=== PATIENT | female | born 1945 | race Caucasian/White ===

== ENCOUNTER → 2019-02-05 | Outpatient (CLI) | payer MEDICARE | LOC: GMAHI 16:48 | PROVIDERS: ATTEND Nurse Practitioner Family | DX: R10.84 Generalized abdominal pain (principal); Z79.899 Other long term (current) drug therapy ==

== ENCOUNTER → 2019-02-10 | Outpatient (CLI) | payer MEDICARE | LOC: GMAJS 16:40 | PROVIDERS: ATTEND Physician Assistant | DX: R10.84 Generalized abdominal pain (principal); R50.9 Fever, unspecified ==

== ENCOUNTER → 2019-02-12 | Outpatient (CLI) | payer MEDICARE ==
--- NOTE | 2019-02-12 17:28 | US ---
EXAM DESCRIPTION: Abdomen,Complete: Ultrasound. CLINICAL HISTORY: GENERALIZED ABDOMINAL PAIN COMPARISON: None Available. TECHNIQUE: Transabdominal scannin-dimensional and Doppler modes. FINDINGS: Gallbladder: Appears slightly contracted. Wall thickness 2.9 mm with no fluid. No intraluminal stones or sludge. Nontender with transducer pressure. Common bile duct: 6.7 mm which is borderline dilated. Liver: Long axis right lobe 12.2 cm. Diffuse increased echogenicity with normal caliber of the ducts and portal vein; normal hepatopedal flow. Smooth capsule with no ascites.. Pancreas: Normal echogenicity of the included segments with common bile duct. Abdominal aorta: Normal caliber from the proximal segment to the distal bifurcation, with atherosclerotic changes of the intima. IVC: visualized; normal caliber. Spleen normal echogenicity; long axis measurement is 10.8 cm. Right kidney: 9.8 cm Long axis with cortical thinning 11 mm. Normal cortical echogenicity. No echogenic stones, hydronephrosis, or perirenal fluid. left kidney: 8.7 cm long axis with cortical thinning but normal echogenicity. No echogenic stones, hydronephrosis, or perirenal fluid. IMPRESSION: 1. Fatty liver but not enlarged. Normal vascularity and ducts. No ascites. 2. Gallbladder mildly contracted but no stones or sludge. Nontender. Common bile duct is borderline dilated. Consider radionuclide hepatobiliary imaging. 3. Bilateral kidneys with age-related changes more likely, normal echogenicity. Spleen pancreas unremarkable. Aorta with atherosclerotic changes but normal caliber. Electronically signed by: Umang Payton MD 02/12/2019 5:25 PM CDT
== END ==
LOC: US 14:30
PROVIDERS: ATTEND Physician Assistant
DX: K76.0 Fatty (change of) liver, not elsewhere classified (principal); K82.9 Disease of gallbladder, unspecified

== ENCOUNTER → 2019-02-28 | Outpatient (CLI) | payer MEDICARE ==
--- NOTE | 2019-02-28 11:57 | NM ---
EXAM DESCRIPTION: Hepatobiliary w/CCK: Nuclear Medicine. CLINICAL HISTORY: ABDOMINAL TENDERNESS COMPARISON: Complete abdominal ultrasound 02/12/2019. TECHNIQUE: Patient was given 8.2 mCi of technetium 99 M mebrofenin (Choletec) radiopharmaceutical IV. Anterior gamma camera images were obtained of the right upper quadrant at 5 minute intervals for one hour . The patient was then given 1.8 mcg CCK IV infusion over 30 minutes interval. Gallbladder ejection fraction was evaluated by measuring diminishing radioactivity in the gallbladder, over 30 min interval. FINDINGS: Immediate visualization of the entire liver after IV infusion of radiopharmaceutical began. No focal regions of increased or decreased activity. Timely visualization of intrahepatic and extrahepatic biliary tract, gallbladder, and small bowel. The common bile duct appears to be dilated. After CCK IV infusion began, the right upper quadrant pain and nausea was duplicated. During CCK IV infusion, the activity in the gallbladder decreased 9% in the first 10 minutes and 99% in the first 20 minutes. IMPRESSION: 1. No intrahepatic or extrahepatic biliary obstruction with timely visualization of the gallbladder and small bowel after IV radiopharmaceutical administration. Dilated bile duct correlates with ultrasound findings. Consider CT scan of the abdomen with thin section scanning of the gómez hepatis and pancreas, ERCP or MRCP. 2. Administration of CCK IV reproduced symptoms, but normal 30 minute ejection fraction of 96%. Electronically signed by: Umang Payton MD 02/28/2019 11:55 AM CDT
== END ==
LOC: NM 08:00
PROVIDERS: ATTEND Family Medicine
DX: K83.8 Other specified diseases of biliary tract (principal)
CPT/HCPCS: 78227; A9537

== ENCOUNTER → 2019-03-03 | Outpatient (CLI) | payer MEDICARE ==
--- NOTE | 2019-03-07 09:24 | MAM ---
EXAM DESCRIPTION: 3D Screening BILATERAL : Digital Mammography. CLINICAL HISTORY: 73 years Female ANNUAL SCREENING no personal history of breast cancer. Remote family history of breast cancer. Childbirth. Premenopausal 20+ years no HRT. Lifetime risk of developing breast cancer (Tyrer-Cuzick model)(%): 3.5. COMPARISON: Baseline study at this facility.. TECHNIQUE: Bilateral CC and MLO projection full-field images, digital tomosynthesis mammographic technique. Bilateral digital 2-D full-field MLO images. CAD not available for tomosynthesis or 2-D images. FINDINGS: The breast parenchymal density pattern is: Scattered areas of fibroglandular density. No skin thickening or nipple retraction. Bilateral solitary microcalcifications. Bilateral vascular calcifications. No focal, stellate mass or density, focal asymmetry , and no suspicious microcalcifications bilaterally. IMPRESSION: Benign exam. BIRAD CATEGORY: 2 BENIGN FINDINGS. RECOMMENDATIONS: FOLLOW UP: Routine digital bilateral mammographic screening, one year interval from February 2019. Written communication explaining the IMPRESSION and follow-up, will be mailed to the patient and referring health care provider. The FINDINGS and the FOLLOW-UP plan were reviewed in person with the patient after the examination. According to the [employer], yearly mammograms are recommended starting at age 40 and continuing as long as a woman is in good health. Any breast change noted on a breast self-exam should be reported promptly to the patient's healthcare provider. Breast MRI is recommended for women with an approximately 20-25% or greater lifetime risk of breast cancer, including women with a strong family history of breast or ovarian cancer and women who have been treated for Hodgkin's disease. A negative mammographic report should not delay tissue diagnosis in patients with significant clinical history or physical findings. Extremely dense breast tissue limits the sensitivity of digital mammography. Electronically signed by: Umang Payton MD 03/07/2019 9:22 AM CDT
== END ==
LOC: GMAM 21:11
PROVIDERS: ATTEND Family Medicine
DX: Z12.31 Encounter for screening mammogram for malignant neoplasm of breast (principal); R10.811 Right upper quadrant abdominal tenderness

== ENCOUNTER → 2019-03-05 | Outpatient (CLI) | payer MEDICARE ==
--- NOTE | 2019-03-05 16:35 | CT ---
PROVIDED CLINICAL HISTORY/REASON FOR EXAM: RUQ PAIN STUDY TYPE/TECHNIQUE: CT ABDOMEN PELVIS WITH IV CONTRAST This exam was performed according to our departmental dose-optimization program, which includes automated exposure control, adjustment of the mA and/or kV according to patient size and/or use of iterative reconstruction technique. COMPARISON: None at time of initial interpretation. FINDINGS: Bibasilar volume loss. No focal consolidation or suspicious pulmonary nodule. Slightly nodular liver contour. Mild steatosis. No suspicious lesion. The gallbladder is not distended. The portal vein is patent. The spleen, pancreas and adrenal glands are unremarkable. Right renal cyst. Normal renal contours. Symmetric renal parenchymal enhancement. No hydronephrosis. No urolithiasis. The bladder is mildly distended. No adnexal mass. Scattered colonic diverticula without focal inflammatory change. No evidence of bowel obstruction. No findings to suggest appendicitis. No adenopathy. No focal fluid collection. No free air. Normal caliber abdominal aorta. Moderate diffuse atherosclerotic disease. No acute or suspicious osseous abnormality. Scattered degenerative changes present. IMPRESSION: 1. No evidence of acute process in the abdomen or pelvis. 2. Findings of chronic liver disease. Electronically signed by: Zach John MD 03/05/2019 4:34 PM CDT
== END ==
LOC: CT 14:30
PROVIDERS: ATTEND Family Medicine
DX: K76.9 Liver disease, unspecified (principal)

== ENCOUNTER → 2019-03-21 | Day surgery (SDC) | payer MEDICARE ==
[~2019-03-21] MED LIST: LACTATED RINGERS 1,000 ML ONE; LIDOCAINE 1% 10 ML VIAL INJ ONE; PROPOFOL 200 MG/20 ML VIAL IV ONE
--- NOTE | 2019-03-21 09:23 | OP ---
DATE OF PROCEDURE: 03/21/19 PROCEDURE: 1. Colonoscopy. SURGEON: Daniel Langston MD ANESTHESIA: General. PROCEDURE: After complete informed consent, general anesthesia was induced. In the lateral position, digital rectal exam revealed no evidence of masses. The colonoscope was carefully inserted and then advanced. Diverticulosis was noted, but it was advanced all the way to the cecum without difficulty. The appendiceal orifice was identified. We did not get into the terminal ileum. Upon careful withdrawal and inspection, no significant polyps were identified throughout the entire colon. There was diverticulosis. There was no evidence of complications. Overall, a normal scope. We will review her history and make further recommendations, but she declared this would be her last colonoscopy at age 73. She was awakened and taken to Recovery to be discharged. [facility][id number]
[2019-03-21 14:05] VITALS: BP 151/69; TEMP 97.3; O2SAT 99
== END ==
LOC: AMB 05:31
PROVIDERS: ATTEND Surgery
DX: Z12.11 Encounter for screening for malignant neoplasm of colon (principal); K57.30 Diverticulosis of large intestine without perforation or abscess without bleeding; F41.9 Anxiety disorder, unspecified; F32.9 Major depressive disorder, single episode, unspecified; Z88.5 Allergy status to narcotic agent; Z88.8 Allergy status to other drugs, medicaments and biological substances; Z87.891 Personal history of nicotine dependence; Z79.899 Other long term (current) drug therapy
CPT/HCPCS: 00812; G0121; J3490; J7120

== ENCOUNTER → 2019-04-02 | Outpatient (CLI) | payer MEDICARE ==
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
== END ==
LOC: CT 15:00
PROVIDERS: ATTEND Family Medicine
DX: R07.9 Chest pain, unspecified (principal)

== ENCOUNTER 2019-04-07 05:32 | Day surgery (SDC) | payer MEDICARE ==
[2019-04-07] MEDS ORDERED: LACTATED RINGERS 1,000 ML ONE (08:26)
[2019-04-07] MEDS ORDERED: SODIUM CHLORIDE 0.9% 50 ML VIAL INJ ONE (10:00)
[2019-04-07] MEDS ORDERED: LIDOCAINE 1% 10 ML VIAL INJ ONE (10:00)
[2019-04-07] MEDS ORDERED: KETOROLAC TROMETHAMINE INJ 30 MG/ML VIAL IV ONE (10:00)
[2019-04-07] MEDS ORDERED: ONDANSETRON INJ 4 MG/2 ML VIAL IV ONE (10:00)
[2019-04-07] MEDS ORDERED: DEXAMETHASONE INJ 10 MG/ML VIAL IV ONE (10:00)
[2019-04-07] MEDS ORDERED: METOCLOPRAMIDE HCL INJ 10 MG/2 ML VIAL IV ONE (10:00)
[2019-04-07] MEDS ORDERED: PROPOFOL 200 MG/20 ML VIAL IV ONE (10:00)
[2019-04-07] MEDS ORDERED: ePHEDrine SULF 50 MG/ML IV ONE (10:00)
[2019-04-07] MEDS ORDERED: raNITIdine HCL INJ 25 MG/ML VIAL IV ONE (10:00)
[2019-04-07] MEDS ORDERED: fentaNYL CITRATE INJ 50 MCG/ML AMP ONE ×2 (11:22→12:14)
[2019-04-07] MEDS ORDERED: ROCURONIUM BROMIDE 10 MG/ML VIAL ONE (11:23)
[2019-04-07] MEDS ORDERED: BUPIVACAINE 0.5% W/EPI 30 ML VIAL INJ ONE (11:29)
[2019-04-07] MEDS ORDERED: SODIUM CHLORIDE 0.9% 1,000 ML BAG IVS ONE (12:07)
[2019-04-07] MEDS ORDERED: SUGAMMADEX SODIUM 200 MG/2 ML VIAL IV ONE (12:26)
[2019-04-07] MEDS ORDERED: ONDANSETRON INJ 4 MG/2 ML VIAL ONE (13:02)
[2019-04-07] MEDS ORDERED: HYDROmorphone HCL INJ 2 MG/ML VIAL ONE (13:13)
--- NOTE | 2019-04-07 13:19 | OP ---
DATE OF PROCEDURE: 04/07/19 PREOPERATIVE DIAGNOSIS: 1. Biliary dyskinesia. POSTOPERATIVE DIAGNOSIS: 1. Biliary dyskinesia. PROCEDURE: 1. Laparoscopic cholecystectomy with intraoperative cholangiogram. [id number] SURGEON: Daniel Langston MD. ANESTHESIA: General and local. FINDINGS: The anatomy was normal. Cholangiogram revealed normal anatomy with free flow throughout and no filling defect. COMPLICATIONS: None. ESTIMATED BLOOD LOSS: Minimal. SPECIMEN: Gallbladder. CONDITION: Stable. PLAN: Discharge. INDICATION: She had signs and symptoms consistent with gallbladder dysfunction. However, all of her studies were normal. She was consented for removal of her gallbladder given the nature of her symptoms, the length, etc. After completing informed consent, she was to have her gallbladder out. PROCEDURE: The patient was brought to the Operating Suite in supine position. General anesthesia was induced. She was prepped and draped in sterile fashion. Marcaine 0.5% with epinephrine was used all incision sites while maintaining upward traction. A farrah was made into the base of the umbilicus. Veress needle was introduced. There was free flow of fluid into the peritoneal cavity which was insufflated to an appropriate level with CO2 gas. The 5 mm trocar was placed followed by the camera. There was no evidence of bleeding or bowel injury. The patient was positioned and subxiphoid and lateral ports were placed under direct visualization without difficulty. The gallbladder fundus was easily identified. It was grasped and retracted superiorly and laterally. The infundibulum was grasped. The infundibular structures were dissected free. The duct and artery were clearly visualized through the triangle of Calot. A clip was placed on the proximal duct and ductotomy performed. The cholangiocatheter was introduced. The cholangiogram revealed the above normal findings. The catheter was removed. Three clips were placed on the distal duct. The duct was ligated and the artery triply ligated. The gallbladder was then dissected off the fossa and totally and removed in the EndoCatch bag. The gallbladder fossa was examined. It was hemostatic. Under low pressure, it remained hemostatic. The clips were intact. There was no bleeding or bile leak. The subxiphoid fascia was then closed with 0 Vicryl using the suture passer. It was airtight and non-bleeding. The remaining trocars were removed. There was no bleeding from the trocar sites. The wounds were irrigated and closed with Monocryl. Dressings were applied. The patient was awakened and taken to Recovery in stable condition to be discharged. [id number]
[2019-04-07] MEDS ORDERED: HYDROcodone 5MG/APAP 325MG 1 EA TAB ONE (13:54)
[2019-04-07 14:48] VITALS: BP 152/84; TEMP 97; O2SAT 96
== END 2019-04-07 14:35 | disposition home or self-care (01) ==
LOC: AMB 05:32
PROVIDERS: ATTEND Surgery
DX: K81.1 Chronic cholecystitis (principal); F41.9 Anxiety disorder, unspecified; F32.9 Major depressive disorder, single episode, unspecified; Z88.5 Allergy status to narcotic agent; Z88.8 Allergy status to other drugs, medicaments and biological substances; Z79.899 Other long term (current) drug therapy
CPT/HCPCS: 00790; 47563; 88304; A4216; J1100; J1170; J1885; J2405; J2765; J2780; J3010; J3490; J7030; J7120

== ENCOUNTER 2019-05-13 12:54 | Observation (INO) | payer MEDICARE ==
[2019-05-13] MEDS ORDERED: ASPIRIN (CHEWABLE) 81 MG TAB PO ONE (13:18)
[2019-05-13] MEDS ORDERED: SODIUM CHLORIDE 0.9% 1000ML 1,000 ML IVS ONE ×2 (13:19→14:50)
--- NOTE | 2019-05-13 13:22 | ED.PDOC ---
History of Present Illness - General Chief Complaint: Respiratory Problem Stated Complaint: shortness of breath ,fever,weakness Time Seen by Provider: 05/13/19 13:10 - History of Present Illness Initial Comments: 74 yo F PMH Laparoscopic Cholecytectomy [address] Melton in [facility] and has PMD for follow up Dr. Soriano presents to ED friend and neighbor at bedside c/o chest pain sob and fatigue x 1-2 days. Admits fever highest 101 denies chills nausea vomiting diarrhea diaphoresis. No change in diet rest bowel or bladder. Does not drink or smoke denies FH HTN DM no other c/o today. Allergies/Adverse Reactions: Allergies Latex Allergy (Intermediate, Verified 04/04/19 13:39) Hives Diphenhydramine [From Benadryl] Allergy (Unknown, Verified 04/04/19 13:39) Codeine Adverse Reaction (Mild, Verified 04/04/19 13:39) Patient states just a sensitivity Tramadol Adverse Reaction (Verified 04/04/19 13:39) ADHESIVES Adverse Reaction (Uncoded 03/19/19 15:13) Home Medications: Ambulatory Orders Alprazolam 1 tablet PO BEDTIME 03/19/19 Citalopram Hydrobromide [Citalopram] 1 tablet PO BEDTIME 03/19/19 Gabapentin 1 capsule PO BEDTIME 03/19/19 Review of Systems - Review of Systems Constitutional: States: see HPI, fever EENTM: States: no symptoms reported Respiratory: States: short of breath Cardiology: States: chest pain Gastrointestinal/Abdominal: States: see HPI Genitourinary: States: see HPI Musculoskeletal: States: see HPI Skin: States: see HPI Neurological: States: see HPI Endocrine: States: see HPI Hematologic/Lymphatic: States: see HPI All other Systems: Reviewed and Negative Past Medical History (General) - Patient Medical History Hx Seizures: No Hx Stroke: No Hx Dementia: No Hx Asthma: No Hx of COPD: No Hx Cardiac Disorders: No Hx Congestive Heart Failure: No Hx Pacemaker: No Hx Hypertension: No Hx Thyroid Disease: No Hx Diabetes: No Hx Gastroesophageal Reflux: No Hx Renal Disease: No Hx Cancer: No Hx of HIV: No Hx Hepatitis C: No Hx MRSA: No Surgical History: cholecystectomy, tonsillectomy - Vaccination History Hx Tetanus, Diphtheria Vaccination: Yes Hx Influenza Vaccination: Yes Hx Pneumococcal Vaccination: Yes - Social History Hx Tobacco Use: Yes Hx Chewing Tobacco Use: No Hx Alcohol Use: No Hx Substance Use: No Hx Substance Use Treatment: No Hx Depression: No Hx Physical Abuse: No Hx Emotional Abuse: No Hx Suspected Abuse: No - Female History Patient : No Family Medical History - Family History Mother Family History: Unknown Living Status: Age at (years of age): 74 Cause of : COPD,Cerebral Hemorrhage Hx Family Congestive Heart Failure: Yes - Dad Physical Exam - Physical Exam General Appearance: Comfortable Eye Exam: bilateral normal Ears, Nose, Throat: normal ENT inspection Neck: non-tender, full range of motion Respiratory: lungs clear, no respiratory distress Cardiovascular/Chest: regular rate, rhythm, bradycardia Gastrointestinal/Abdominal: non tender, soft, other - well healed laparoscopic surgical scars Rectal Exam: deferred Back Exam: normal inspection Extremity: normal range of motion, non-tender Neurologic: data keyer II-XII nml as tested Skin Exam: normal color Progress - Progress Progress: 05/13/19 13:24 A/P-Chest Pain SOB Fever Fatigue Near Syncope-iv bolus cbc cmp lipase trop bnp ekg cxr radiation monitor pulse ox asa tylenol lactate reassess, likely obs admission chest pain rule out also ct abdomen pelvis r/o post surgical compl ication 05/13/19 13:30 05/13/19 13:33 Pt. also reports near syncopal episodes when going from sitting to standing since Sunday (x3 days) 05/13/19 15:32 Laboratory Tests 05/13/19 05/13/19 05/13/19 13:09 13:20 13:20 WBC RBC Hgb Hct MCV MCH MCHC RDW Plt Count MPV Absolute Neuts (auto) Absolute Lymphs (auto) Absolute Monos (auto) Absolute Eos (auto) Absolute Basos (auto) Neutrophils % Lymphocytes % Monocytes % Eosinophils % Basophils % Sodium 133 L Potassium 4.3 Chloride 99 L Carbon Dioxide 19 L Anion Gap 19.3 H BUN 17 Creatinine 1.07 BUN/Creatinine Ratio 15.9 Random Glucose 97 Serum Osmolality 267.8 L Lactic Acid Calcium 9.6 Total Bilirubin 0.5 AST 28 ALT 13 Alkaline Phosphatase 108 Troponin I < 0.02 B-Natriuretic Peptide 211.0 H* Serum Total Protein 7.9 Albumin 3.8 Globulin 4.1 H Albumin/Globulin Ratio 0.9 L Lipase 34 05/13/19 05/13/19 13:20 13:20 WBC 8.9 RBC 3.91 L Hgb 12.4 Hct 36.2 MCV 92.6 MCH 31.8 H MCHC 34.3 RDW 13.7 Plt Count 211 MPV 8.0 Absolute Neuts (auto) 6.10 Absolute Lymphs (auto) 1.90 Absolute Monos (auto) 0.60 Absolute Eos (auto) 0.30 Absolute Basos (auto) 0.10 Neutrophils % 68.2 Lymphocytes % 20.8 Monocytes % 7.1 Eosinophils % 3.3 Basophils % 0.6 Sodium Potassium Chloride Carbon Dioxide Anion Gap BUN Creatinine BUN/Creatinine Ratio Random Glucose Serum Osmolality Lactic Acid 2.3 H Calcium Total Bilirubin AST ALT Alkaline Phosphatase Troponin I B-Natriuretic Peptide Serum Total Protein Albumin Globulin Albumin/Globulin Ratio Lipase - Results/Orders Results/Orders: EKG-non specific TW changes left axis deviation no STEMI motion artifact NSR Laboratory Tests 05/13/19 05/13/19 05/13/19 13:09 13:20 13:20 WBC RBC Hgb Hct MCV MCH MCHC RDW Plt Count MPV Absolute Neuts (auto) Absolute Lymphs (auto) Absolute Monos (auto) Absolute Eos (auto) Absolute Basos (auto) Neutrophils % Lymphocytes % Monocytes % Eosinophils % Basophils % Sodium 133 L Potassium 4.3 Chloride 99 L Carbon Dioxide 19 L Anion Gap 19.3 H BUN 17 Creatinine 1.07 BUN/Creatinine Ratio 15.9 Random Glucose 97 Serum Osmolality 267.8 L Lactic Acid Calcium 9.6 Total Bilirubin 0.5 AST 28 ALT 13 Alkaline Phosphatase 108 Troponin I < 0.02 B-Natriuretic Peptide 211.0 H* Serum Total Protein 7.9 Albumin 3.8 Globulin 4.1 H Albumin/Globulin Ratio 0.9 L Lipase 34 05/13/19 05/13/19 13:20 13:20 WBC 8.9 RBC 3.91 L Hgb 12.4 Hct 36.2 MCV 92.6 MCH 31.8 H MCHC 34.3 RDW 13.7 Plt Count 211 MPV 8.0 Absolute Neuts (auto) 6.10 Absolute Lymphs (auto) 1.90 Absolute Monos (auto) 0.60 Absolute Eos (auto) 0.30 Absolute Basos (auto) 0.10 Neutrophils % 68.2 Lymphocytes % 20.8 Monocytes % 7.1 Eosinophils % 3.3 Basophils % 0.6 Sodium Potassium Chloride Carbon Dioxide Anion Gap BUN Creatinine BUN/Creatinine Ratio Random Glucose Serum Osmolality Lactic Acid 2.3 H Calcium Total Bilirubin AST ALT Alkaline Phosphatase Troponin I B-Natriuretic Peptide Serum Total Protein Albumin Globulin Albumin/Globulin Ratio Lipase Study: Single Frontal Radiograph of the Chest. Indication:pain Comparison: February 14, 2016 Impression: Cardiomegaly without failure. Lungs hyperexpanded with mild left basilar atelectasis but otherwise clear. No acute osseous abnormality. Electronically signed by: Tereso Collazo MD 05/13/2019 1:40 PM CDT Laboratory Tests 05/13/19 05/13/19 05/13/19 13:09 13:20 13:20 WBC RBC Hgb Hct MCV MCH MCHC RDW Plt Count MPV Absolute Neuts (auto) Absolute Lymphs (auto) Absolute Monos (auto) Absolute Eos (auto) Absolute Basos (auto) Neutrophils % Lymphocytes % Monocytes % Eosinophils % Basophils % Sodium 133 L Potassium 4.3 Chloride 99 L Carbon Dioxide 19 L Anion Gap 19.3 H BUN 17 Creatinine 1.07 BUN/Creatinine Ratio 15.9 Random Glucose 97 Serum Osmolality 267.8 L Lactic Acid Calcium 9.6 Total Bilirubin 0.5 AST 28 ALT 13 Alkaline Phosphatase 108 Troponin I < 0.02 B-Natriuretic Peptide 211.0 H* Serum Total Protein 7.9 Albumin 3.8 Globulin 4.1 H Albumin/Globulin Ratio 0.9 L Lipase 34 Urine Color Urine Appearance Urine pH Ur Specific [place] Urine Protein Urine Glucose (UA) Urine Ketones Urine Blood Urine Nitrite Urine Bilirubin Urine Urobilinogen Ur Leukocyte Esterase Urine RBC Urine WBC Ur Epithelial Cells Urine Bacteria 05/13/19 05/13/19 05/13/19 13:20 13:20 15:18 WBC 8.9 RBC 3.91 L Hgb 12.4 Hct 36.2 MCV 92.6 MCH 31.8 H MCHC 34.3 RDW 13.7 Plt Count 211 MPV 8.0 Absolute Neuts (auto) 6.10 Absolute Lymphs (auto) 1.90 Absolute Monos (auto) 0.60 Absolute Eos (auto) 0.30 Absolute Basos (auto) 0.10 Neutrophils % 68.2 Lymphocytes % 20.8 Monocytes % 7.1 Eosinophils % 3.3 Basophils % 0.6 Sodium Potassium Chloride Carbon Dioxide Anion Gap BUN Creatinine BUN/Creatinine Ratio Random Glucose Serum Osmolality Lactic Acid 2.3 H Calcium Total Bilirubin AST ALT Alkaline Phosphatase Troponin I < 0.02 B-Natriuretic Peptide Serum Total Protein Albumin Globulin Albumin/Globulin Ratio Lipase Urine Color Urine Appearance Urine pH Ur Specific [place] Urine Protein Urine Glucose (UA) Urine Ketones Urine Blood Urine Nitrite Urine Bilirubin Urine Urobilinogen Ur Leukocyte Esterase Urine RBC Urine WBC Ur Epithelial Cells Urine Bacteria 05/13/19 05/13/19 16:15 17:38 WBC RBC Hgb Hct MCV MCH MCHC RDW Plt Count MPV Absolute Neuts (auto) Absolute Lymphs (auto) Absolute Monos (auto) Absolute Eos (auto) Absolute Basos (auto) Neutrophils % Lymphocytes % Monocytes % Eosinophils % Basophils % Sodium Potassium Chloride Carbon Dioxide Anion Gap BUN Creatinine BUN/Creatinine Ratio Random Glucose Serum Osmolality Lactic Acid 1.3 Calcium Total Bilirubin AST ALT Alkaline Phosphatase Troponin I B-Natriuretic Peptide Serum Total Protein Albumin Globulin Albumin/Globulin Ratio Lipase Urine Color Yellow Urine Appearance Clear Urine pH 8.5 H Ur Specific [place] 1.015 Urine Protein Negative Urine Glucose (UA) Negative Urine Ketones Negative Urine Blood Negative Urine Nitrite Negative Urine Bilirubin Negative Urine Urobilinogen 0.2 Ur Leukocyte Esterase Negative Urine RBC 0 Urine WBC 0 Ur Epithelial Cells 0 Urine Bacteria 0 Study: CT abdomen and pelvis. Indication: pain vomiting Technique: Venous phase CT imaging of the abdomen and pelvis obtained after intravenous administration of contrast. This exam was performed according to our departmental dose-optimization program, which includes automated exposure control, adjustment of the mA and/or kV according to patient size and/or use of iterative reconstruction technique. Comparison: None. Findings: Patchy bibasilar atelectasis. Mild cardiomegaly. Minimal intrahepatic and extrahepatic biliary dilatation, likely secondary to postcholecystectomy state. Pancreas, spleen, adrenal glands, left kidney, bladder, uterus, bilateral adnexa unre markable. 13 mm exiting cyst superior pole right kidney. Colonic diverticulosis appendix not visualized. Small hiatal hernia. Small bowel unremarkable. No free fluid. No free air. No pathologically enlarged lymphadenopathy. Atherosclerosis aorta. Degenerative changes of the spine noted. Impression: Colonic diverticulosis without diverticulitis. Minimal intrahepatic and extrahepatic biliary dilatation likely secondary to postcholecystectomy state but nonspecific. Correlation with liver function tests recommended. Additional findings as above. Electronically signed by: Tereso Collazo MD 05/13/2019 3:03 PM CDT Departure - Departure Clinical Impression: Shortness of breath, Lactic acidosis Chest pain Qualifiers: Chest pain type: unspecified Qualified Code(s): R07.9 - Chest pain, unspecified Fever Qualifiers: Fever type: unspecified Qualified Code(s): R50.9 - Fever, unspecified Disposition: Discharge to Home or Self Care Departure Forms: ED Discharge - Pt. Copy, Patient Portal Self Enrollment Referrals: [facility] [Primary Care Provider] - 1-2 Weeks Home Medications: Ambulatory Orders Alprazolam 1 tablet PO BEDTIME 03/19/19 Citalopram Hydrobromide [Citalopram] 1 tablet PO BEDTIME 03/19/19 Gabapentin 1 capsule PO BEDTIME 03/19/19 Decision To Admit - Decistion To Admit Decision to Admit Reason: Admit from ER Decision to Admit Date: 05/13/19 Decision to Admit Time: 19:20
[2019-05-13] MEDS ORDERED: ACETAMINOPHEN 500 MG TAB PO ONE (13:35)
--- NOTE | 2019-05-13 13:41 | RAD ---
Study: Single Frontal Radiograph of the Chest. Indication:pain Comparison: February 14, 2016 Impression: Cardiomegaly without failure. Lungs hyperexpanded with mild left basilar atelectasis but otherwise clear. No acute osseous abnormality. Electronically signed by: Tereso Collazo MD 05/13/2019 1:40 PM CDT
[2019-05-13] MEDS ORDERED: VANCOMYCIN HCL INJ 1,000 MG in SODIUM CHLORIDE 0.9% 250ML 250 ML IVPB ONE (13:54)
[2019-05-13] MEDS ORDERED: PIPERACILLIN/TAZOBACTAM 3.375 GM in SODIUM CHLORIDE 0.9% 100ML 100 ML IVPB ONE (13:54)
[2019-05-13] MEDS ORDERED: PIPERACILLIN/TAZOBACTAM 3.375 GM VIAL IVPB ONE (14:23)
[2019-05-13] MEDS ORDERED: SODIUM CHLORIDE 0.9% 100ML 100 ML IVPB ONE (14:23)
--- NOTE | 2019-05-13 15:04 | CT ---
Study: CT abdomen and pelvis. Indication: pain vomiting Technique: Venous phase CT imaging of the abdomen and pelvis obtained after intravenous administration of contrast. This exam was performed according to our departmental dose-optimization program, which includes automated exposure control, adjustment of the mA and/or kV according to patient size and/or use of iterative reconstruction technique. Comparison: None. Findings: Patchy bibasilar atelectasis. Mild cardiomegaly. Minimal intrahepatic and extrahepatic biliary dilatation, likely secondary to postcholecystectomy state. Pancreas, spleen, adrenal glands, left kidney, bladder, uterus, bilateral adnexa unremarkable. 13 mm exiting cyst superior pole right kidney. Colonic diverticulosis appendix not visualized. Small hiatal hernia. Small bowel unremarkable. No free fluid. No free air. No pathologically enlarged lymphadenopathy. Atherosclerosis aorta. Degenerative changes of the spine noted. Impression: Colonic diverticulosis without diverticulitis. Minimal intrahepatic and extrahepatic biliary dilatation likely secondary to postcholecystectomy state but nonspecific. Correlation with liver function tests recommended. Additional findings as above. Electronically signed by: Tereso Collazo MD 05/13/2019 3:03 PM CDT
[2019-05-13] MEDS ORDERED: VANCOMYCIN HCL INJ 1,000 MG VIAL IVPB ONE (15:54)
[2019-05-13] MEDS ORDERED: SODIUM CHLORIDE 0.9% 250ML 250 ML ONE (15:55)
--- NOTE | 2019-05-13 20:13 | HP ---
SUPERVISING PHYSICIAN: Chuck Diez MD CHIEF COMPLAINT: Fever and near syncope. HISTORY OF PRESENT ILLNESS: This is a 74-year-old female who came into the Emergency Room today after having a fever at home. She had a near syncopal episode as well. She states she had cholecystectomy about 5 weeks and has done fairly well since then. She said she has not really eaten anything out of the ordinary, but on Sunday after religious, she did go out and eat. She went home after that and took a 3 hour nap. After that, she had a fever. She felt pretty weak at that time and then had gone from a sitting to standing position and felt like she was going to pass out, but did not. On Sunday, she woke up and felt fairly well, so she went to work. However, on Sunday morning, she felt a little bit feverish again, but she did go to work anyway. After going to work, she started to really not feel well and therefore came to the Emergency Room. In the Emergency Room, she was seen by the Emergency Room physician and felt chilled. She had complained of some chest pain as well and therefore they did some cardiac enzymes times 2 which were negative. They also did a lactate which was elevated at 2.3 initially. However, after some IV fluids, it did normalize. It should be noted at that time she was having rigors from having chills. However, as stated before, she did not have a fever in the Emergency Room. Her lab work was done and showed a normal white count with no left shift. Chemistry was a little bit low sodium, potassium was normal, carbon dioxide 19 on initial collection. AST and ALT were normal as well as bilirubin. Due to the recent surgery, she also had a chest x-ray which did not show any acute cardiopulmonary findings and she had a CT of the abdomen and pelvis which showed diverticulosis without diverticulitis and minimal intrahepatic and extrahepatic biliary dilation that was attributed to her recent cholecystectomy. It wanted correlation with liver function tests which, as stated above, were normal. There was no free air. There were no abnormal fluid collections. She also had a strep which was negative. I do not see an influenza screen, but I was told it was negative. In the Emergency Room, she was given a dose of Zosyn as well as vancomycin. At the time of examination, the patient is alert and oriented with no complaints of nausea, vomiting or chest pain at this time. PAST MEDICAL HISTORY: 1. Depression. 2. Anxiety. 3. Neuropathy. 4. Congestive heart failure. 5. Chronic bronchitis, but does not take any maintenance medications. PAST SURGICAL HISTORY: 1. Recent laparoscopic cholecystectomy. 2. Appendectomy. 3. Tonsillectomy. 4. Adenoidectomy. 5. Tubal ligation. MEDICATIONS: 1. Alprazolam. 2. Citalopram. 3. Gabapentin. 4. Lasix on occasion. ALLERGIES: LATEX, BENADRYL, CODEINE, TRAMADOL, ADHESIVES. FAMILY HISTORY: Reviewed and noncontributory to current illness. SOCIAL HISTORY: Smoker, but no alcohol or illicit drugs. PHYSICAL EXAMINATION: VITAL SIGNS: Blood pressure 152/70. Heart rate 58. Respiratory rate 20. Temperature 98.1. Oxygen saturation 100%. GENERAL: Ms. Gonzáles is a 74-year-old female who is in no active distress currently. NEUROLOGIC: The patient is alert and oriented. LUNGS: Clear to auscultation bilaterally. CARDIOVASCULAR: Regular rate and rhythm. Normal S1, S2. ABDOMEN: Soft. Positive bowel sounds. GENITOURINARY: Deferred. EXTREMITIES: Lower extremities with no significant edema. LABORATORY: Labs and films are as discussed in history of present illness. ASSESSMENT: 1. Transient atypical chest pain, rule out acute coronary syndrome. 2. Hypertension. 3. Fever with chills, although none seen here in the hospital yet and white count is normal. 4. Depression with anxiety. 5. Recent laparoscopic cholecystectomy with no evidence of infectious process postoperatively on CT scan. PLAN: At this time, the patient will be admitted as observation to the Floor. I am going to start her on some IV fluids as well as repeat the troponin again. I will recheck her labs in the morning and do cardiac monitoring given the transient chest pain. Nothing is showing up to be consistent with an infectious process, so it could be a viral illness. We will probably speak with her primary care physician, Dr. Soriano, tomorrow regarding her as well. DISCHARGE: Subsequent cardiac enzymes were normal. WBC remained normal, and was afebrile overnight. She has no symptoms this morning. I discussed with Dr. Soriano, and no further workup necessary. Will be discharged in stable condition. Follow up with Dr. Soriano next Sunday at 9:30am. #[id number]
[2019-05-13] MEDS ORDERED: GABAPENTIN 300 MG CAP PO SCH (21:00)
[2019-05-13] MEDS ORDERED: CITALOPRAM HYDROBROMIDE PO SCH (21:00)
[2019-05-13] MEDS ORDERED: ALPRAZolam 0.5 MG TAB PO SCH (21:00)
[2019-05-13] MEDS ORDERED: ACETAMINOPHEN 325 MG TAB PO PRN (22:29)
[2019-05-13] MEDS ORDERED: MORPHINE SULFATE INJ 10 MG/ML VIAL IV PRN (22:29)
[2019-05-13] MEDS ORDERED: NITROGLYCERIN 0.4 MG 25 EA TAB SL PRN (22:29)
[2019-05-13] MEDS ORDERED: SODIUM CHLORIDE 0.9% (FLUSH) 10 ML SYG IV PRN (22:29)
[2019-05-13] MEDS ORDERED: IV SET AND CAP CHANGE INJ INJ SCH (22:30)
[2019-05-13] MEDS ORDERED: LACTATED RINGERS 1,000 ML IVS PRN (22:34)
[2019-05-13] MEDS ORDERED: CITALOPRAM HBR 20 MG TAB ONE (22:41)
[2019-05-14 04:19] VITALS: BP 129/75; TEMP 98.3
[2019-05-14] MEDS ORDERED: SODIUM CHLORIDE 0.9% (FLUSH) 10 ML SYG IV SCH (09:00)
[2019-05-14] MEDS ORDERED: ASPIRIN TABLET 325 MG TAB PO SCH (09:00)
[2019-05-14 17:12] VITALS: O2SAT 97
== END 2019-05-14 10:47 | disposition home or self-care (01) ==
LOC: ER 12:54 → MS 20:12
PROVIDERS: ADMIT Nurse Practitioner; ATTEND Nurse Practitioner
DX: R07.89 Other chest pain (principal); I11.0 Hypertensive heart disease with heart failure; R50.9 Fever, unspecified; F41.8 Other specified anxiety disorders; R55 Syncope and collapse; E87.1 Hypo-osmolality and hyponatremia; E87.2 Acidosis; I50.9 Heart failure, unspecified; G62.9 Polyneuropathy, unspecified; K57.30 Diverticulosis of large intestine without perforation or abscess without bleeding; K44.9 Diaphragmatic hernia without obstruction or gangrene; N28.1 Cyst of kidney, acquired; Z90.49 Acquired absence of other specified parts of digestive tract; Z98.890 Other specified postprocedural states; Z87.891 Personal history of nicotine dependence; Z79.899 Other long term (current) drug therapy; Z88.5 Allergy status to narcotic agent; Z88.6 Allergy status to analgesic agent; Z88.8 Allergy status to other drugs, medicaments and biological substances; Z91.040 Latex allergy status; Z91.048 Other nonmedicinal substance allergy status; Z82.5 Family history of asthma and other chronic lower respiratory diseases; Z84.89 Family history of other specified conditions
CPT/HCPCS: 96361; 96366; 96367; 96365; J2543; J7030 ×2; J7050 ×2; J3370; J7120; 80048; 82553 ×2; 80053; 87880; 80061; 36415 ×6; 81001; 85025 ×2; 82550 ×2; 83690; 87070; 84484 ×4; 83880; 83605 ×2; 71045; 74177; 99285; 93005 ×3; 87502